=== PATIENT | female | born 1995 | race Caucasian/White ===

== ENCOUNTER 2017-03-14 09:13 | Emergency (ER) | payer MEDICAID ==
[~2017-03-14] VITALS: Ht 162.6 cm; Wt 100.0 kg
[2017-03-14] MEDS ORDERED: MAGNESIUM/ALUMINUM HYDROXIDE/SIMETHICONE 30ML UDC PO STA (10:11)
[2017-03-14] MEDS ORDERED: ONDANSETRON HCL 4MG/2ML VIAL IV STA (10:11)
[2017-03-14] MEDS ORDERED: FAMOTIDINE 20MG/2ML VIAL IV STA (10:11)
[2017-03-14 10:19] VITALS: BP 123/80
[2017-03-14 10:37] LABS: BASOPHILS % 0.5 % (0.0-2.0); DIFFERENTIAL COMMENT 0; EOSINOPHILS % 0.7 % (0.0-5.0); HEMATOCRIT. 33.8 % (36.0-48.0); HEMOGLOBIN. 10.9 g/dL (12.0-16.0); LYMPHOCYTES % 22.5 % (20.0-50.0); MEAN CORPUSCULAR HEMOGLOBIN 24.7 pg (28.0-32.0); MEAN CORPUSCULAR HGB CONC 32.2 g/dL (31.0-37.0); MEAN CORPUSCULAR VOLUME 76.8 fL (81.0-99.0); MEAN PLATELET VOLUME 7.6 fl (7.4-10.4); MONOCYTES % 5.6 % (2.0-8.0); NEUTROPHILS % 70.7 % (40.0-76.0); PLATELET 354 x1000/uL (130-400); RED CELL DISTRIBUTION WIDTH 17.3 % (11.6-14.6); WHITE BLOOD COUNT 7.5 x1000/uL (4.5-11.0)
[2017-03-14 10:41] LABS: INR 1.1; PROTHROMBIN TIME 11.2 sec
[2017-03-14 10:47] LABS: ALANINE AMINOTRANSFERASE 59 IU/L (13-61); ALBUMIN 3.4 g/dL (3.4-5.0); AMYLASE 27 IU/L (25-115); ANION GAP 9; CALCIUM 9.6 mg/dL (8.5-10.1); CARBON DIOXIDE 30 mEq/L (21-32); CHLORIDE 105 mEq/L (98-107); INDEX HEMOLYSI 1 (1-3); INDEX ICTERIC 1 (1-4); INDEX LIPEMIC 1 (1-3); LIPASE 138 IU/L (73-393); UREA NITROGEN BLOOD 6 mg/dL (7-21); eGFR > 60 mL/min (>60)
[2017-03-14 11:09] LABS: CLARITY URINE CLEAR (CLEAR); COLOR URINE YELLOW (YELLOW); GLUCOSE URINE NEGATIVE (NEGATIVE); KETONES URINE NEGATIVE (NEGATIVE); LEUKOCYTE ESTERASE URINE NEGATIVE (NEGATIVE); NITRITE URINE NEGATIVE (NEGATIVE); OCCULT BLOOD URINE NEGATIVE (NEGATIVE); PH URINE 5.5 (4.5-8.0); PROTEIN URINE NEGATIVE (NEGATIVE); SPECIFIC GRAVITY URINE 1.012 (1.005-1.030); UROBILINOGEN URINE 0.2 E.U./dL (0.2-1.0)
[2017-03-14 11:21] LABS: *AMPHETAMINES SCREEN URINE NEGATIVE (NEGATIVE); *BARBITURATES SCREEN URINE NEGATIVE (NEGATIVE); *BENZODIAZEPINES SCREEN URINE NEGATIVE (NEGATIVE); *COCAINE SCREEN URINE NEGATIVE (NEGATIVE); CANNABINOID URINE SCREEN NEGATIVE (NEGATIVE); ECSTASY MDMA SCREEN URINE NEGATIVE (NEGATIVE); METHADONE URINE SCREEN NEGATIVE (NEGATIVE); OPIATES URINE SCREEN NEGATIVE (NEGATIVE); PHENCYCLIDINE URINE SCREEN NEGATIVE (NEGATIVE)
[2017-03-14] MEDS ORDERED: ONDANSETRON 4MG ODT PO ONE (11:30)
[2017-03-14] MEDS ORDERED: FAMOTIDINE 20MG TABLET PO ONE (11:30)
== END 2017-03-14 12:43 | disposition home or self-care (01) ==
LOC: ER 09:14
DX: R10.13 Epigastric pain (principal); R11.2 Nausea with vomiting, unspecified
CPT/HCPCS: 36415; 76705; 80053; 80305; 81003; 81025; 82150; 83690; 85025; 85610; 99285; Q0162; J2405; J3490

== ENCOUNTER 2020-03-15 01:04 | Emergency (ER) | payer MEDICAID ==
[~2020-03-15] VITALS: Ht 162.6 cm; Wt 78.0 kg
[2020-03-15] MEDS ORDERED: MAGNESIUM/ALUMINUM HYDROXIDE/SIMETHICONE 30ML UDC PO STA (01:51)
[2020-03-15] MEDS ORDERED: ACETAMINOPHEN WITH CODEINE 300/30MG TABLET PO ONE (02:00)
[2020-03-15 02:27] LABS: BASOPHILS % 0.7 % (0.0-2.0); EOSINOPHILS % 0.8 % (0.0-5.0); HEMATOCRIT. 35.9 % (36.0-48.0); HEMOGLOBIN. 12.1 g/dL (12.0-16.0); MEAN CORPUSCULAR HEMOGLOBIN 28.6 pg (28.0-32.0); MEAN CORPUSCULAR VOLUME 84.9 fL (81.0-99.0); MEAN PLATELET VOLUME 9.5 fl (7.4-10.4); MONOCYTES % 6.2 % (2.0-8.0); NEUTROPHILS % 68.3 % (40.0-76.0); PLATELET 252 x1000/uL (130-400); RED BLOOD CELL COUNT 4.23 mill/uL (4.2-5.4); RED CELL DISTRIBUTION WIDTH 15.4 % (11.6-14.6)
[2020-03-15 02:35] LABS: CHLORIDE 106 mEq/L (98-107)
[2020-03-15] MEDS ORDERED: KETOROLAC 15MG/ML VIAL IV ONE (04:15)
[2020-03-15 06:55] VITALS: BP 118/79
== END 2020-03-15 07:03 | disposition home or self-care (01) ==
LOC: ER 01:04
DX: K80.20 Calculus of gallbladder without cholecystitis without obstruction (principal)
CPT/HCPCS: 36415; 76705; 80053; 81025; 83690; 85025; 96374; 99285; J1885

== ENCOUNTER 2020-06-23 15:07 | Emergency (ER) | payer MEDICAID ==
[~2020-06-23] VITALS: Ht 160 cm; Wt 78.0 kg
[2020-06-23] MEDS ORDERED: ACETAMINOPHEN WITH CODEINE 300/30MG TABLET PO STA (16:25)
[2020-06-23 17:29] LABS: CLARITY URINE CLEAR (CLEAR); COLOR URINE YELLOW (YELLOW); KETONES URINE NEGATIVE (NEGATIVE); LEUKOCYTE ESTERASE URINE NEGATIVE (NEGATIVE); NITRITE URINE NEGATIVE (NEGATIVE); OCCULT BLOOD URINE TRACE (NEGATIVE); PROTEIN URINE NEGATIVE (NEGATIVE); SPECIFIC GRAVITY URINE 1.024 (1.005-1.030); UROBILINOGEN URINE 0.2 E.U./dL (0.2-1.0)
[2020-06-23 17:34] LABS: BASOPHILS % 0.6 % (0.0-2.0); HEMATOCRIT. 36.3 % (36.0-48.0); LYMPHOCYTES % 24.5 % (20.0-50.0); MEAN CORPUSCULAR HEMOGLOBIN 27.6 pg (28.0-32.0); MEAN CORPUSCULAR VOLUME 83.6 fL (81.0-99.0); MEAN PLATELET VOLUME 8.4 fl (7.4-10.4); MONOCYTES % 5.8 % (2.0-8.0); NEUTROPHILS % 68.1 % (40.0-76.0); PLATELET 329 x1000/uL (130-400); RED BLOOD CELL COUNT 4.35 mill/uL (4.2-5.4); RED CELL DISTRIBUTION WIDTH 15.3 % (11.6-14.6)
[2020-06-23 17:36] LABS: CHLORIDE 110 mEq/L (98-107)
[2020-06-23 17:49] LABS: HCG SCREEN NEGATIVE
[2020-06-23 19:57] VITALS: BP 128/82
== END 2020-06-23 19:58 | disposition home or self-care (01) ==
LOC: ER 15:07
DX: R10.9 Unspecified abdominal pain (principal)
CPT/HCPCS: 36415; 74176; 80053; 81003; 81025; 84703; 85025; 93005; 99285

== ENCOUNTER 2021-03-23 08:16 | Emergency (ER) | payer MEDICAID ==
[~2021-03-23] VITALS: Ht 162.6 cm; Wt 87.0 kg
[2021-03-23 09:06] LABS: BASOPHILS % 0.6 % (0.0-2.0); EOSINOPHILS % 1.3 % (0.0-5.0); HEMATOCRIT. 36.8 % (36.0-48.0); HEMOGLOBIN. 12.2 g/dL (12.0-16.0); LYMPHOCYTES % 29.3 % (20.0-50.0); MEAN CORPUSCULAR HEMOGLOBIN 28.1 pg (28.0-32.0); MEAN CORPUSCULAR VOLUME 84.4 fL (81.0-99.0); MEAN PLATELET VOLUME 8.5 fl (7.4-10.4); MONOCYTES % 5.7 % (2.0-8.0); NEUTROPHILS % 63.1 % (40.0-76.0); PLATELET 322 x1000/uL (130-400); RED BLOOD CELL COUNT 4.36 mill/uL (4.2-5.4); RED CELL DISTRIBUTION WIDTH 14.7 % (11.6-14.6)
[2021-03-23 09:10] LABS: CHLORIDE 113 mEq/L (98-107)
[2021-03-23 09:49] VITALS: BP 126/67
[2021-03-23 10:19] LABS: CLARITY URINE CLEAR (CLEAR); COLOR URINE YELLOW (YELLOW); KETONES URINE NEGATIVE (NEGATIVE); LEUKOCYTE ESTERASE URINE NEGATIVE (NEGATIVE); NITRITE URINE NEGATIVE (NEGATIVE); OCCULT BLOOD URINE NEGATIVE (NEGATIVE); PH URINE 5.5 (4.5-8.0); PROTEIN URINE NEGATIVE (NEGATIVE); SPECIFIC GRAVITY URINE 1.022 (1.005-1.030); UROBILINOGEN URINE 0.2 E.U./dL (0.2-1.0)
[2021-03-23] MEDS ORDERED: IBUP-2029 MT (12:19)
[2021-03-23] MEDS ORDERED: IOHEXOL-300 100 ML BOTTLE ONE (13:08)
== END 2021-03-23 13:06 | disposition home or self-care (01) ==
LOC: ER 08:16
DX: R10.9 Unspecified abdominal pain (principal); Z90.49 Acquired absence of other specified parts of digestive tract
CPT/HCPCS: 36415; 74177; 76830; 76856; 80053; 81003; 81025; 83690; 85025; 99285; Q9967

== ENCOUNTER 2025-06-12 14:04 | Emergency (ER) | payer MEDICAID ==
[~2025-06-12] VITALS: Ht 165.1 cm; Wt 98.4 kg
[~2025-06-12 14:04] MED LIST: IBUP-2029 MT
[2025-06-12 14:15] VITALS: O2SAT 99
[2025-06-12] MEDS: SODIUM CHLORIDE 0.9% 1,000 ML IV ONE (14:59)
[2025-06-12 15:05] LABS: BASOPHILS % 1.1 % (0.0-2.0); EOSINOPHILS % 0.5 % (0.0-5.0); HEMATOCRIT. 36.2 % (36.0-48.0); HEMOGLOBIN. 12.6 g/dL (12.0-16.0); LYMPHOCYTES % 14.7 % (20.0-50.0); MEAN PLATELET VOLUME 9.0 fl (7.4-10.4); MONOCYTES % 3.5 % (2.0-8.0); NEUTROPHILS % 80.2 % (40.0-76.0); PLATELET 267 x1000/uL (130-400); RED BLOOD CELL COUNT 4.04 mill/uL (4.2-5.4); RED CELL DISTRIBUTION WIDTH 13.8 % (11.6-14.6)
[2025-06-12 15:07] LABS: CLARITY URINE TURBID (CLEAR); COLOR URINE YELLOW (YELLOW); GLUCOSE URINE NEGATIVE (NEGATIVE); KETONES URINE NEGATIVE (NEGATIVE); LEUKOCYTE ESTERASE URINE 1+ (NEGATIVE); NITRITE URINE NEGATIVE (NEGATIVE); OCCULT BLOOD URINE TRACE (NEGATIVE); PH URINE 7.0 (4.5-8.0); PROTEIN URINE TRACE (NEGATIVE); SPECIFIC GRAVITY URINE 1.016 (1.005-1.030); UROBILINOGEN URINE 0.2 E.U./dL (0.2-1.0)
[2025-06-12 15:20] LABS: MUCUS URINE TRACE /lpf (< = 2+); SQUAMOUS EPITHELIAL CELL URINE 3+ /lpf (RARE/1+)
[2025-06-12 15:20] LABS: INR 1.0
[2025-06-12 15:21] LABS: BACTERIA URINE 2+; WBC URINE 0-2 /hpf (0-2)
[2025-06-12] MEDS: ACETAMINOPHEN 500MG TABLET PO ONE (15:29)
[2025-06-12 15:37] LABS: *AMPHETAMINES SCREEN URINE NEGATIVE (NEGATIVE); *BARBITURATES SCREEN URINE NEGATIVE (NEGATIVE); *BENZODIAZEPINES SCREEN URINE NEGATIVE (NEGATIVE); *COCAINE SCREEN URINE NEGATIVE (NEGATIVE); CANNABINOID URINE SCREEN NEGATIVE (NEGATIVE); ECSTASY MDMA SCREEN URINE NEGATIVE (NEGATIVE); METHADONE URINE SCREEN NEGATIVE (NEGATIVE); OPIATES URINE SCREEN NEGATIVE (NEGATIVE); PHENCYCLIDINE URINE SCREEN NEGATIVE (NEGATIVE)
[2025-06-12 15:57] LABS: CREATININE 0.6 mg/dL (0.6-1.0)
[2025-06-12 16:15] LABS: UREA NITROGEN BLOOD 5 mg/dL (9-23)
[2025-06-12 16:16] LABS: ETHANOL BLOOD < 10 mg/dL (<10)
[2025-06-12 16:17] LABS: ASPARTATE AMINOTRANSFERASE 15 IU/L (<34); BILIRUBIN DIRECT < 0.1 mg/dL (<=3.0)
[2025-06-12 16:18] LABS: BILIRUBIN TOTAL 0.3 mg/dL (0.1-1.0); PROTEIN TOTAL 7.3 g/dL (6.0-8.3)
[2025-06-12 16:31] LABS: B-HCG QUANTITATIVE 10600 mIU/mL (<6)
[2025-06-12] MEDS: POTASSIUM CHLORIDE 20MEQ TABLET SR PO ONE (16:41)
[2025-06-12 17:55] VITALS: BP 128/77; PULSE 81; RESP 16; TEMP 37; O2SAT 100
[2025-06-15 04:07] LABS: HSV TYPE 2 SPECIFIC AB IGG Non Reactive (Non Reactive)
== END 2025-06-12 18:15 | disposition short-term general hospital (02) ==
LOC: ER 14:04
DX: O26.892 Other specified pregnancy related conditions, second trimester (principal); N13.30 Unspecified hydronephrosis; R10.9 Unspecified abdominal pain; Z36.89 Encounter for other specified antenatal screening; Z3A.23 23 weeks gestation of pregnancy; Z79.899 Other long term (current) drug therapy
CPT/HCPCS: 86695; 86696; 80076; 80305; 80048; 81003; 80320; 84702; 83735; 85025; 85610; 85730; 86850; 86900; 86901; 87340; 86592; 36415; 76770; 76805; 96360; 96361; 99285; J7030; A4606; G0480